=== PATIENT | male | born 1995 | race African-American/Black ===

== ENCOUNTER 2023-07-26 00:59 | Emergency (ER) | payer OTHER ==
[2023-07-26 01:13] VITALS: BP 148/82; PULSE 85; RESP 18; TEMP 98.7; BMI 28.5
[2023-07-26] MEDS ORDERED: ACETAMINOPHEN 325 MG TABLET (FP) ONE (01:55)
[2023-07-26] MEDS: ACETAMINOPHEN 500 MG TABLET (FP) PO ONE (02:00)
== END 2023-07-26 03:46 | disposition home or self-care (01) ==
LOC: JER 00:59
DX: M54.2 Cervicalgia (principal); V03.10XA Pedestrian on foot injured in collision with car, pick-up truck or van in traffic accident, initial encounter; Y92.410 Unspecified street and highway as the place of occurrence of the external cause
CPT/HCPCS: 70450-TC; 72125-TC; 99284-25